=== PATIENT | male | born 1975 | race Asian ===

== ENCOUNTER 2019-12-04 21:58 | Emergency (ER) | payer BC ==
[~2019-12-04] VITALS: Ht 167.6 cm; Wt 54.9 kg
[2019-12-04 22:32] VITALS: BP_SYST 108
--- NOTE | 2019-12-04 22:38 | NUR ---
Patient triaged and placed in waiting room. VSS and patient appears in no acute distress at this time. Accompanied by SON, awaiting available bed, and MD notified of need for MSE.
--- NOTE | 2019-12-04 23:05 | NUR ---
Patient to ER bed 8 to gown for evaluation. Side rails up.
--- NOTE | 2019-12-04 23:32 | NUR ---
Pt presents to ER with son with c/o cough. Pt A&Ox4. Pt states he has had cough for 2 days. Upon assessment, lung sounds clear bilateral with no use of accessory muscles. Pt states he has a family member here visiting from [place]. Pt states he has been hearing about Connors virus and wants to make sure he does not have Connors virus. Pt denies nausea, vomiting, chest pain, runny nose, and fever. Will continue to monitor.
--- NOTE | 2019-12-05 00:04 | NUR ---
Flu swab collected and sent to Lab
--- NOTE | 2019-12-05 00:13 | NUR ---
ER Dr. Duarte at bedside examining patient.
[2019-12-05 01:40] VITALS: BP_SYST 112
--- NOTE | 2019-12-05 01:40 | NUR ---
Patient given written and verbal discharge instructions and verbalizes understanding. ER MD discussed with patient the results and treatment provided. Patient in stable condition. ID arm band removed. no IV Rx of tessalon perles given. Patient educated on pain management and to follow up with PMD. Pain Scale 0/10. Opportunity for questions provided and answered. Medication side effect fact sheet provided.
== END 2019-12-05 01:40 | disposition home or self-care (01) ==
LOC: SED 21:58
DX: R05 Cough (principal)
CPT/HCPCS: 36415; 71046-TC; 86710; 99284